=== PATIENT | female | born 1955 | race Caucasian/White ===

== ENCOUNTER 2021-03-08 15:00 | Observation (INO) | payer MEDICARE, OTHER ==
[~2021-03-08] VITALS: Ht 167.6 cm; Wt 105.0 kg
[~2021-03-08 15:00] MED LIST: ASPIRIN EC81 MG PO; CITALOPRAM HBR40 MG PO; HYDROCHLOROTHIA25 MG PO; LEVOTHYROXINE125 MCG PO; LIPITOR40 MG PO; LOSARTAN POTAS100 MG PO; LOVASTATIN40 MG PO; METFORMIN HCL1000 MG PO; MOTRIN IB200 MG PO; OXYCODON-ACETA1 EAC2 PO; TYLENOL EXTRA500 MG PO; VITAMIN D2000 UNI1 PO; ZOLPIDEM TARTRAT5 MG PO
--- OUTSIDE RECORDS SUMMARY | 2021-03-08 15:04 | XMS ---
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 Nhi has no Care Guidelines for this patient. EFrancis VISIT COUNT (12 MO.) 1 CONCEPCION [facility] TOTAL 1 NOTE: Visits indicate total known visits. ED/UCC VISIT TRACKING (12 MO.) 03/08/2021 15:01 CONCEPCION [facility] OR TYPE: Emergency COMPLAINT: - HEADACHE,DEHYDRATED,POSS UTI INPATIENT VISIT TRACKING (12 MO.) No inpatient visits to display in this time frame [id number]
[2021-03-08] MEDS ORDERED: BUPROPION XL150 MG PO (16:08)
[2021-03-08] MEDS ORDERED: ATORVASTATIN CA20 MG PO (16:08)
--- NOTE | 2021-03-08 22:50 | NUR ---
IN TO GET ADMISSION VITALS, PT UP TO THE TOILET AT THIS TIME, FRESH ICE WATER PROVIDED, NO FURTHER NEEDS
--- NOTE | 2021-03-08 23:45 | NUR ---
PT ARRIVED AT 2250 AND WAS TUCKED INTO ROOM BY TOWBOAT ENGINEER. UPON ENTERING ROOM PT REPORTED 8/10 PAIN FROM HEADACHE. ADMINISTERED 2 OXYCODONE FOR HEADACHE. IV FLUSHES FINE AND IV FLUIDS STARTED. COMPLETED ABREVIATED INTAKE FORM D/T ER SURGE. PT DENIES FURTHER NEEDS A THIS TIME. CALL LIGHT IS CLOSE.
--- NOTE | 2021-03-09 01:09 | NUR ---
PT IS RESTING WITH EYES CLOSED, RR IS EVEN AND NONLABORED. CALL LIGHT IS CLOSE.
--- NOTE | 2021-03-09 02:33 | NUR ---
PT IS RESTING WITH EYES CLOSED, RR IS EVEN AND NONLABORED. CALL LIGHT IS CLOSE.
--- NOTE | 2021-03-09 05:23 | NUR ---
ATTEMPTED LAB DRAW WITHOUT SUCCESS. PT REPORTS HEADACHE 5/10 AND TOLERABLE WITHOUT PAIN MEDS AT THIS TIME. ASSISTED PT TO THE RESTROOM AND BACK TO BED.PT DENIES FURTHER NEEDS AT THIS TIME. CALL LIGHT IS CLOSE.
--- NOTE | 2021-03-09 09:45 | NUR ---
Patient resting in bed. Tylenol 650mg po admin for ongoing headache. Patient denies sob and or chest pain. Fresh water provided. Vital signs are stable. Patient denies needs at this time. Dr. Jackson aware unresulted am labs.
--- NOTE | 2021-03-09 09:45 | NUR ---
UPDATE RECVD FROM [facility] SAEED DUE TO PATIENT CURRENT CONTACT [employer] [facility] 19. [facility] STATES PATIENT IS STABLE AT THIS TIME. PATIENT LIVE AT HOME WITH HER JOHN. PER SANFORD SAEED SHE DOES NOT ANTICIPATE ANY DISCHARGE PLANNING NEEDS FOR THE PATIENT AT THIS TIME. WILL CONTINUE TO CHECK IN WITH PRIMARY RN FOR ANY QUESTIONS OR CONCERNS THAT MAY ARISE.
[2021-03-09] MEDS ORDERED: LEVOTHYROXINE150 MCG PO (09:53)
--- NOTE | 2021-03-09 12:04 | NUR ---
Patient in bed resting, respirations even and non labored. Patient reports her head pain is a bit improved. IV is patent at this time. Patient has no needs. Fresh water provided. Personal supplies and call light within reach.
[2021-03-09] MEDS ORDERED: VITAMIN D325 MCG PO (12:34)
[2021-03-09] MEDS ORDERED: B COMPLEX1 EACH PO (12:34)
--- NOTE | 2021-03-09 12:34 | NUR ---
MED REC COMPLETE
--- NOTE | 2021-03-09 12:45 | NUR ---
Patient sitting up in bed at this time, respirations even and non labored. Patient consumed 100% of her lunch. No nausea at this time. Headache has improved a bit per her report. Patient has no needs. Personal supplies and call light within reach.
--- NOTE | 2021-03-09 14:55 | NUR ---
ASKED PATIENT THIS MORNING IF SHE WOULD LIKE TO TAKE A SHOWER AND SHE SAID SHE IS TO TIRED AND DOESN'T FEEL UP TO IT. DID HER BLOOD SUGAR CHECK FOR BREAKFAST AND LUNCH. PATIENT IS NOW SLEEPING. DID ORDER HER LUNCH, DINNER AND BREAKFAST FOR TOMORROW.
--- NOTE | 2021-03-09 18:39 | NUR ---
Atttempted to call to update him with plan of care; no answer and no voicemail set up so unable to provide call back number to hospital. Patient updated.
--- NOTE | 2021-03-09 19:10 | NUR ---
RECEIVED REPORT, PT IS RESTING IN BED WITH EYES CLOSED AT THIS TIME. RR IS EVEN AND NONLABORED, CALL LIGHT IS CLOSE.
--- NOTE | 2021-03-09 20:30 | NUR ---
IN ROOM TO ASSESS PT AND ADMINISTER EVENING MEDICATIONS. PT REPORTS A HEADACHE AT 3/10. ADMINISTERED TYLENOL FOR HEADACHE. VS TAKEN AND ENETERED, TEMP 100. PT DENIES SOB AND DIZZINESS. SHE CONTINUES TO HAVE A OCCASIONAL DRY COUGH, WORSE WITH TAKING DEEP BREATHS. PT DENIES NEEDS AT THIS TIME. CALL LIGHT IS CLOSE.
--- NOTE | 2021-03-09 22:21 | NUR ---
PT IS RESTING WITH EYES CLOSED, RR IS EVEN AND NONLABORED. CALL LIGHT IS CLOSE.
--- NOTE | 2021-03-09 23:15 | NUR ---
PT IV WAS BEEPING, IT IS NOW INFUSING FINE. CALL LIGHT IS CLOSE AND PT IS RESTING WITH EYES CLOSED, RR IS EVEN AND NONLABORED.
--- NOTE | 2021-03-10 00:24 | NUR ---
PT'S IV WAS BEEPING FROM BENDING HER ARM. SHE NOW HAS A PILLOW UNDER HER ARM AND A NEW IV BAG IS INFUSING. PT'S TEMP AT THIS TIME IS 99.5. SHE DENIES PAIN AND NAUSEA. PT DENIES FURTHER NEEDS AND CALL LIGHT IS CLOSE.
--- NOTE | 2021-03-10 02:43 | NUR ---
PT IS RESTING WITHE EYES CLOSED, RR IS EVEN AND NONLABORED. CALL LIGHT IS CLOSE AND IV IS INFUSING FINE.
--- NOTE | 2021-03-10 04:11 | NUR ---
PT IS RESTING WITH EYES CLOSED, RR IS EVEN AND NONLABORED. CALL LIGHT IS CLOSE. IV IS INFUSING FINE.
--- NOTE | 2021-03-10 05:24 | NUR ---
BLOOD DRAWN FROM RIGHT HAND AND SENT TO LAB. PT TOLERATED WELL.
--- NOTE | 2021-03-10 05:52 | NUR ---
IN ROOM TO ADMINISTER THYROID MEDICATION AND OXYCODONE FOR A HEADACHE 03/16. PT DENIES DIZZINESS AND REPORTS SHE IS FEELING A LITTLE BETTER. ASSISTED PT TO THE RESTROOM AND SHE HAD SOME SOB WITH A RESP RATE OF 22. ONCE BACK IN BED SOB DECREASED. FRESH WATER AT BEDSIDE AND PT DENIES FURTHER NEEDS.
--- NOTE | 2021-03-10 07:30 | NUR ---
RECEIVED REPORT AROUND 0700, PT WAS SLEEPING AT THAT TIME.
--- NOTE | 2021-03-10 08:30 | NUR ---
AJITH IS CLEAR, ALL OTHER LOBES HAVE FINE CRACKLES PRESENT. PT DENIES SOB WHILE STILL. PT STILL ON RA WITH O2 SATS >90%. ABD SOUNDS PRESENT, PT DENIES DIARRHEA, NO PERIPH. EDEMA NOTED. PT STILL HAS A MODERATE HEADACHE, PT AFEBRILE, V/S WDL SO FAR.
--- NOTE | 2021-03-10 09:36 | NUR ---
CASE MANAGEMENT ASSESSMENT COMPLETE. PER DR. WRIGHT PATIENT IS DISCHARGE HOME TODAY. PATIENT LIVES AT HOME WITH HER SPOUSE. PATIENT DOES NOT REQUIRE DME AND NO FINANCIAL ASSISTANCE NEEDED AT THIS TIME.
--- NOTE | 2021-03-10 10:50 | NUR ---
PT READY FOR D/C. NO NEW CONCERNS WERE NOTED. PT VERBALIZED UNDERSTANDING OF D/C INSTRUCTIONS.
[2021-04-14] MEDS ORDERED: PRILOSEC2.5 MG (10:52)
[2021-04-14] MEDS ORDERED: HYDROCHLOROTHIA25 MG PO (10:52)
[2021-04-14] MEDS ORDERED: BAYER CHEWABLE81 MG PO (10:52)
== END 2021-03-10 10:55 | disposition home or self-care (01) ==
LOC: ED 15:00 → MS 15:02
PROVIDERS: ADMIT Internal Medicine; ATTEND Internal Medicine
DX: N17.9 Acute kidney failure, unspecified (principal); E11.9 Type 2 diabetes mellitus without complications; E03.9 Hypothyroidism, unspecified; R11.2 Nausea with vomiting, unspecified; E86.0 Dehydration; I10 Essential (primary) hypertension; Z86.16 Personal history of COVID-19; Z87.891 Personal history of nicotine dependence; Z88.8 Allergy status to other drugs, medicaments and biological substances; Z79.84 Long term (current) use of oral hypoglycemic drugs
CPT/HCPCS: 80048; 80053; 81001; 83605; 85025; 87040; 96365; 96376; 99284; G0378; J0696; J1815; J7030

== ENCOUNTER 2021-04-17 13:00 | Day surgery (SDC) | payer MEDICARE, OTHER ==
[~2021-04-17] VITALS: Ht 167.6 cm; Wt 109.0 kg
[~2021-04-17 13:00] MED LIST changes: +ATORVASTATIN CA20 MG PO; +B COMPLEX1 EACH PO; +BAYER CHEWABLE81 MG PO; +BUPROPION XL150 MG PO; +LEVOTHYROXINE150 MCG PO; +PRILOSEC2.5 MG; +VITAMIN D325 MCG PO
--- NOTE | 2021-04-17 15:17 | NUR ---
04/17/21 Nany Becker 1512- PT ARRIVES TO PACU TALKING. PT REPORTS NO PAIN OR NAUSEA. RESP EVEN AND UNLABORED. OXYGEN SAT MID TO HIGH 90'S ON 3L VIA NC.
--- NOTE | 2021-04-18 14:30 | PATH ---
[facility] [address] [place], [place] [address] Signed SPECIMEN(S): A DUODENAL BIOPSY SPECIMEN(S): B DUODENAL BULB BIOPSY SPECIMEN(S): C ANTRUM/PYLORUS BIOPSY SPECIMEN(S): D LOWER ESOPHAGEAL BIOPSY SPECIMEN(S): E MIDDLE ESOPHAGEAL BIOPSY SPECIMEN(S): F CECUM COLON BIOPSY SPECIMEN(S): G ASCENDING/RIGHT COLON POLYP SPECIMEN(S): H TRANSVERSE COLON POLYP SPECIMEN(S): I DESCENDING/LEFT COLON POLYP SPECIMEN(S): J SIGMOID POLYP SPECIMEN(S): K SIGMOID POLYP SPECIMEN(S): L RECTUM SPECIMEN SOURCE: A. DUODENAL BIOPSY B. DUODENAL BULB BIOPSY C. ANTRUM/PYLORUS BIOPSY D. LOWER ESOPHAGEAL BIOPSY E. MIDDLE ESOPHAGEAL BIOPSY F. CECUM COLON BIOPSY G. ASCENDING/RIGHT COLON POLYP H. TRANSVERSE COLON POLYP I. DESCENDING/LEFT COLON POLYP J. SIGMOID POLYP K. SIGMOID POLYP L. RECTUM CLINICAL HISTORY: Esophagogastroduodenoscopy, colonoscopy. Chronic diarrhea. History of polyps, family history of colon CA, dysphagia. MICROSCOPIC DESCRIPTION: Histologic sections of all submitted blocks are examined by light microscopy. These findings, together with the gross examination, support the pathologic diagnosis. FINAL PATHOLOGIC DIAGNOSIS: A. Duodenum, biopsy: - Duodenal mucosa with no histopathologic abnormality. - Negative for increased intraepithelial lymphocytes or villous blunting. - Negative for dysplasia or malignancy. B. Duodenum, bulb, biopsy: PATIENT NAME: HALEYJENNIE PATHOLOGY DATE OF : 53 REPORT #: [id number] PHYSICIAN: AMRITA FLOWERS PCP: MAXX SANCHEZ REPORT IS CONFIDENTIAL AND NOT TO BE RELEASED WITHOUT AUTHORIZATION [facility] [address] [place], [place] [address] Signed - Duodenal mucosa with prominent Cha's glands. - Negative for increased intraepithelial lymphocytes or villous blunting. - Negative dysplasia or malignancy. C. Stomach, antrum/pylorus, biopsy: - Antral mucosa with no histopathologic abnormality. - Negative for Helicobacter organisms on HE stain. - Negative for dysplasia or malignancy. D. Esophagus, lower, biopsy: - Squamous mucosa with increased intraepithelial eosinophils, see comment. - Negative for intestinal metaplasia, dysplasia, or malignancy. E. Esophagus, middle, biopsy: - Squamous mucosa with increased intraepithelial eosinophils, see comment. - Negative for intestinal metaplasia, dysplasia, or malignancy. F. Colon, cecum, biopsy: - Colonic mucosa with no histopathologic abnormality. - Negative for active, chronic, or microscopic colitis. - Negative for dysplasia or malignancy. G. Colon, ascending/right, polyp, polypectomy: - Tubular adenoma. - Negative for high-grade dysplasia or malignancy. H. Colon, transverse, polyp, polypectomy: - Hyperplastic polyp. = Negative for dysplasia or malignancy. I. Colon, descending/left, biopsy: - Colonic mucosa with no histopathologic abnormality. - Negative for dysplasia or malignancy. J. Colon, sigmoid, polyp, polypectomy: - Hyperplastic polyp. - Negative for dysplasia or malignancy. K. Colon, sigmoid, polyp, polypectomy: - Hyperplastic polyp. - Negative for dysplasia or malignancy. L. Rectum, biopsy: - Rectal mucosa with no histopathologic abnormality. - Negative for active or chronic proctitis. - Negative for dysplasia or malignancy. COMMENT: Regarding specimens D and E: The biopsies are similar and demonstrate reactive squamous mucosa with increased intraepithelial eosinophils, (approximately 75 per high power field in the distal PATIENT NAME: JENNIE DE LEON PATHOLOGY DATE OF : 53 REPORT #: [id number] PHYSICIAN: AMRITA PATHOLOGY PCP: MAXX SANCHEZ REPORT IS CONFIDENTIAL AND NOT TO BE RELEASED WITHOUT AUTHORIZATION [facility] [address] [place], [place] [address] Signed esophagus and 80 per high power field in the middle esophagus) with eosinophil degranulation, spongiosis, and basal cell hyperplasia. The findings are consistent with eosinophilic esophagitis in the correct clinical setting. Endoscopic correlation required. NAL:cml:C2NR GROSS DESCRIPTION: Twelve specimens are received in twelve containers, labeled "CH." A. The specimen, labeled "CH, 1," and designated on the requisition "duodenum," is received in formalin and consists of two adame soft tissue fragments that measure 0.3 cm in greatest dimension. The specimen is entirely submitted in cassette (A1). B. The specimen, labeled "CH, 2," and designated on the requisition "duodenal bulb," is received in formalin and consists of two adame soft tissue fragments that measure 0.2-0.3 cm in greatest dimension. The specimen is entirely submitted in cassette (B1). C. The specimen, labeled "CH, 3," and designated on the requisition "antrum/pylorus," is received in formalin and consists of two adame soft tissue fragments that measure 0.2-0.3 cm in greatest dimension. The specimen is entirely submitted in cassette (C1). D. The specimen, labeled "CH, 4," and designated on the requisition "lower esophagus," is received in formalin and consists of two adame soft tissue fragments that measure 0.3 cm in greatest dimension. The specimen is entirely submitted in cassette (D1). E. The specimen, labeled "CH, 5," and designated on the requisition "middle esophagus," is received in formalin and consists of one thin, adame soft tissue fragment that measures 0.5 cm in greatest dimension. The specimen is entirely submitted in cassette (E1). F. The specimen, labeled "CH, 6," and designated on the requisition "cecum," is received in formalin and consists of four adame soft tissue fragments that measure 0.1-0.3 cm in greatest dimension. The specimen is entirely submitted in cassette (F1). Smallest fragment is minute and may not survive processing. G. The specimen, labeled "CH, 7," and designated on the requisition "ascending/right colon," is received in formalin and consists of three adame soft tissue fragments that measure 0.2-0.6 cm in greatest dimension. The specimen is entirely submitted in cassette (G1). H. The specimen, labeled "CH, 8," and designated on the requisition "transverse colon," is received in formalin and consists of one adame soft tissue fragment that measures 0.3 cm in greatest PATIENT NAME: JENNIE DE LEON PATHOLOGY DATE OF : 53 REPORT #: [id number] PHYSICIAN: AMRITA FLOWERS PCP: MAXX SANCHEZ REPORT IS CONFIDENTIAL AND NOT TO BE RELEASED WITHOUT AUTHORIZATION [address] [address] Signed dimension. The specimen is entirely submitted in cassette (H1). I. The specimen, labeled "CH, 9," and designated on the requisition "descending/left colon," is received in formalin and consists of two adame soft tissue fragments that measure 0.2-0.3 cm in greatest dimension. The specimen is entirely submitted in cassette (I1). J. The specimen, labeled "CH, 10," and designated on the requisition "sigmoid polyp," is received in formalin and consists of three adame soft tissue fragments that measure 0.2-0.3 cm in greatest dimension. The specimen is entirely submitted in cassette (J1). K. The specimen, labeled "CH, 11," and designated on the requisition "sigmoid polyp," is received in formalin and consists of three adame soft tissue fragments that measure 0.2 cm in greatest dimension. The specimen is entirely submitted in cassette (K1). L. The specimen, labeled "CH, 12," and designated on the requisition "rectum," is received in formalin and consists of two adame soft tissue fragments that measure 0.2 cm in greatest dimension. The specimen is entirely submitted in cassette (L1). AT (under the direct supervision of a pathologist) The Gross Description was prepared using a voice recognition system. The report was reviewed for accuracy; however, sound-alike word errors, addition and/or deletions may occur. If there is any question about this report, please contact Client Services. PERFORMING LABORATORY: The technical component was performed by [employer], [address] [place] [id number] (Digital Media Director: Harleen Pemberton MD; CLIA# [id number]). [facility], [address] [address] (CLIA# [id number]). Diagnostician: Basia Garza MD Pathologist Electronically Signed 04/18/2021 Copies: ~ PATIENT NAME: JENNIE DE LEON PATHOLOGY DATE OF : 53 REPORT #: [id number] PHYSICIAN: AMRITA FLOWERS PCP: MAXX SANCHEZ REPORT IS CONFIDENTIAL AND NOT TO BE RELEASED WITHOUT AUTHORIZATION
--- NOTE | 2021-04-18 14:34 | OR ---
[facility] [address] [place], [place] [address] Signed DATE OF OPERATION: 04/17/2021 SURGEON: Mo Tai MD PREOPERATIVE DIAGNOSES: 1. Episodic esophageal dysphagia. 2. Persistent episodic diarrhea. 3. History of colonic polyps. POSTOPERATIVE DIAGNOSES: 1. Mild duodenitis. No evidence of esophageal stricture. 2. Diverticular changes of sigmoid. 3. Polyps x4, probably hyperplastic and adenomatous. 4. No evidence of colitis. PROCEDURES: 1. Esophagogastroduodenoscopy with biopsy. 2. Total colonoscopy to cecum with cold morcellation polypectomy x2 and cold snare polypectomy x2 and biopsy of cecum and rectum. ANESTHESIA: Intravenous sedation, fentanyl 175 mcg and Versed 7 mg. INDICATION: This 66-year-old white woman is a patient of CHEN Clayton. She has a history of colonic polyps. She has had episodic diarrhea not associated with bleeding. She did undergo cholecystectomy in 2019. This problem may represent a post cholecystectomy type diarrhea. She has had no blood per rectum. Additionally, she has dysphagia, usually in the cervical esophagus, sometimes more distally. She does take Prilosec on a routine basis for reflux symptoms. She is recommended at this time to undergo upper endoscopy and concurrent colonoscopy to better characterize these problems. The risk of bleeding, infection, and perforation were reviewed with her. She understands and wished to proceed. FINDINGS: Upper endoscopy showed normal vocal cords and the esophagus overall appeared normal. There was no stricture. There was mild corrugation of the mid esophagus and the remote possibility of the eosinophilic esophagitis is considered. The stomach itself was normal. There was mild duodenitis in the bulb. CLOtest was negative 40 minutes post Electronically Signed By: MO TAI MD 04/18/21 1434 PATIENT NAME: JENNIE DE LEON OPERATIVE REPORT DATE OF : 53 REPORT #: [id number] PHYSICIAN: MO TAI MD PCP: MAXX SANCHEZ REPORT IS CONFIDENTIAL AND NOT TO BE RELEASED WITHOUT AUTHORIZATION [facility] [address] [place], [place] [address] Signed procedure. On colonoscopy, the prep was good. Complete colonoscopy was undertaken to the cecum. There was no sign of colitis, though she did have diverticular change of the sigmoid. There were 4 polyps, all of them small, 2 of them hyperplastic appearing, 2 adenomatous, all excised completely 2 with snare and 2 with cold morcellation technique. Biopsies were additionally taken of the cecum and rectum to assess for occult colitis. DESCRIPTION OF PROCEDURE: The patient was brought to the endoscopy suite, given topical Hurricaine spray lidocaine anesthesia, placed in lateral decubitus position. She was given intravenous sedation with full cardiopulmonary monitoring. A bite block was placed. An Olympus video upper endoscope was passed in the hypopharynx. The vocal cords were normal. Scope was easily passed in the esophagus, throughout its length it was normal. There is certainly no well-formed or obvious stricture. There was no Glynn's epithelium or distal esophageal stricture or inflammation. The scope was advanced to the stomach, which was insufflated with air. There was no sign of bile. Rugal folds were normal. The antrum appeared reasonably normal as was the pylorus. The scope was passed through into the duodenum. Duodenal bulb was mildly inflamed. The 2nd and 3rd portions were normal. Biopsies were taken of the 2nd portion and ultimately the bulb. The scope was withdrawn and biopsies then taken of the antrum for both WANDA and pathologic testing. Retroflexed view was undertaken showing reasonably good flap valve. The scope was straightened, withdrawn and biopsies then taken of the distal esophagus, subsequently the midesophagus to assess for occult eosinophilic esophagitis. The scope was withdrawn carefully and ultimately removed. Plans were then made for colonoscopy. Additional sedation was given as needed. Digital rectal examination was normal. An Olympus video colonoscope was passed in the rectum and manipulated throughout the colon noting a few small hyperplastic polyps in the rectosigmoid and left colon. There are few diverticula as well. The scope was ultimately passed to the cecum where good visualization was noted. Biopsies were taken of the cecum, though it appeared normal, mostly to assess for occult colitis. The scope was then withdrawn, in the mid ascending colon was a small polyp, which was excised. The scope was withdrawn to transverse colon where another similar polyp was excised at this time with cold snare technique. Careful withdrawal of scope showed 2 small polyps of the sigmoid and an additional 1 of the rectum, both excised with cold morcellation technique. Retroflexed view was normal and biopsies were taken of the rectum to assess for occult colitis as well. The scope was then removed and the patient was taken to the recovery room in good condition. CONCLUDING DIAGNOSIS: Electronically Signed By: MO TAI MD 04/18/21 1434 PATIENT NAME: JENNIE DE LEON OPERATIVE REPORT DATE OF : 53 REPORT #: [id number] PHYSICIAN: MO TAI MD PCP: MAXX SANCHEZ REPORT IS CONFIDENTIAL AND NOT TO BE RELEASED WITHOUT AUTHORIZATION [address] [address] Signed Upper endoscopy showing only mild bulbar duodenitis. No clear lesion to account for dysphagia. Await pathology report on midesophagus for possible eosinophilic esophagitis. On colonoscopy, diverticular changes were noted. The polyps that were seen are not worrisome in appearance and certainly would not cause diarrhea. Unless there is occult colitis noted (lymphocytic type, etc.), I would additionally await the biopsies and in the meantime, prescribe Questran 4 g p.o. 1 to 4 times a day for symptom control for probable choleretic diarrhea. The patient should have followup colonoscopy in 3 to 5 years depending on the pathologic findings. I will see her again if her diarrhea problem is not controlled with the aforementioned intervention. MD ЕЛЕНА Ross/MODL /[id number] cc: CHEN Clayton Copies: MAXX SANCHEZ ~ Electronically Signed By: MO TAI MD 04/18/21 1434 PATIENT NAME: JENNIE DE LEON OPERATIVE REPORT DATE OF : 53 REPORT #: [id number] PHYSICIAN: MO TAI MD PCP: HARRIES,MAXX PA REPORT IS CONFIDENTIAL AND NOT TO BE RELEASED WITHOUT AUTHORIZATION
== END 2021-04-17 16:08 | disposition home or self-care (01) ==
LOC: OPS 13:00 → DS 13:03 → OPS 14:00
PROVIDERS: ATTEND Surgery
PROC: 0DBP8ZZ Excision of Rectum, Via Natural or Artificial Opening Endoscopic (ICD-10-PCS; 2021-04-17)
PROC: 0DB98ZZ Excision of Duodenum, Via Natural or Artificial Opening Endoscopic (ICD-10-PCS; principal; 2021-04-17 14:00)
PROC: 0DBH8ZZ Excision of Cecum, Via Natural or Artificial Opening Endoscopic (ICD-10-PCS; 2021-04-17 14:00)
DX: D12.2 Benign neoplasm of ascending colon (principal); K63.5 Polyp of colon; R13.19 Other dysphagia; K29.80 Duodenitis without bleeding; K52.9 Noninfective gastroenteritis and colitis, unspecified; K57.30 Diverticulosis of large intestine without perforation or abscess without bleeding; E11.9 Type 2 diabetes mellitus without complications; E66.01 Morbid (severe) obesity due to excess calories; I10 Essential (primary) hypertension; E03.9 Hypothyroidism, unspecified; Z63.79 Other stressful life events affecting family and household; Z80.0 Family history of malignant neoplasm of digestive organs; Z86.010 Personal history of colon polyps; Z79.84 Long term (current) use of oral hypoglycemic drugs; Z68.38 Body mass index [BMI] 38.0-38.9, adult
CPT/HCPCS: 88305; 99153; G0500; J2250; J3010; J7121